=== PATIENT | male | born 2000 | race Caucasian/White ===

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

== ENCOUNTER 2022-01-16 08:30 | Outpatient (RCR) | payer MEDICAID, SELFPAY | END 2022-02-12 23:59 | LOC: NS 08:30 | PROVIDERS: Referring Provider Nurse Practitioner Family; Visit Provider Nurse Practitioner Family | DX: Z71.3 Dietary counseling and surveillance (principal); E66.3 Overweight; Z68.54 Body mass index [BMI] pediatric, 95th percentile for age to less than 120% of the 95th percentile for age | CPT/HCPCS: 97803 ==

== ENCOUNTER 2022-03-04 11:27 | Outpatient (RCR) | payer MEDICAID, SELFPAY | END 2022-03-15 23:59 | LOC: NS 11:27 | PROVIDERS: Referring Provider Nurse Practitioner Family; Visit Provider Nurse Practitioner Family | DX: Z71.3 Dietary counseling and surveillance (principal); E66.3 Overweight; Z68.41 Body mass index [BMI] 40.0-44.9, adult | CPT/HCPCS: 97803 ==